=== PATIENT | male | born 1970 | race African-American/Black ===

== ENCOUNTER 2022-04-30 11:04 | Emergency (ER) | payer BC ==
[~2022-04-30] VITALS: Ht 193 cm; Wt 61.2 kg
--- NOTE | 2022-04-30 11:13 | NUR ---
PT VS: 110/76 HR 85 RR 14 O2 98%
--- NOTE | 2022-04-30 11:20 | NUR ---
PT [id number] C/O WEAKNESS AND DIZZINESS X3DAYS, WAS JUST DC FRI FROM HOSPITAL FOR NECK TUMOR REMOVAL, HX OF LIVER TRANSPLANT 2009. PT IS A/OX4, NO PAIN AT THIS TIME, RR 12 STABLE AT THIS TIME AND ON MONITOR.
--- NOTE | 2022-04-30 11:21 | NUR ---
DR. BAUGH AT BEDSIDE AT THIS TIME.
[2022-04-30] MEDS ORDERED: IV NS 0.9% 1,000 ML BAG IV ONE (11:30)
--- NOTE | 2022-04-30 11:43 | NUR ---
PT VS: 114/77 HR 82 RR 12 O2 99%
[2022-04-30] MEDS ORDERED: AZAT50TA18 PO (11:48)
[2022-04-30] MEDS ORDERED: CALC500T52 PO (11:48)
[2022-04-30] MEDS ORDERED: TACR0.5C4 PO (11:48)
[2022-04-30] MEDS ORDERED: FERR325T6 PO (11:48)
[2022-04-30] MEDS ORDERED: PRED5TAB PO (11:48)
--- NOTE | 2022-04-30 12:13 | NUR ---
PT VS: 122/77 HR 82 RR 12 O2 98%
[2022-04-30 12:32] LABS: BASOPHILS # (AUTO) 0.1 K/uL (0.0-0.2); BASOPHILS % (AUTO) 0.8 % (0.0-2.0); HEMATOCRIT 30 % (39-51); LYMPHOCYTES # (AUTO) 0.6 K/uL (0.8-4.8); LYMPHOCYTES % (AUTO) 8.2 % (20.0-44.0); MEAN CORPUSCULAR HGB CONC 34 g/dl (31.0-36.0); MEAN CORPUSCULAR VOLUME 93 fL (80-96); MONOCYTES # (AUTO) 0.7 K/uL (0.1-1.30); MONOCYTES % (AUTO) 10.4 % (2.0-12.0); NEUTROPHILS # (AUTO) 5.6 K/uL (1.8-8.9); NEUTROPHILS % (AUTO) 78.6 % (43.0-81.0); PLATELET COUNT (AUTO) 489 K/uL (150-450); WHITE BLOOD COUNT (AUTO) 7.1 K/uL (4.3-11.0)
[2022-04-30 12:37] LABS: CALCIUM, SERUM 7.6 mg/dL (8.5-10.1); CREATININE 0.9 mg/dL (0.6-1.3); POTASSIUM 3.6 mmol/L (3.5-5.1)
--- NOTE | 2022-04-30 12:43 | NUR ---
PT VS: 128/82 HR 85 RR 12 O2 98%
[2022-04-30 13:12] VITALS: BP 113/74
== END 2022-04-30 13:13 | disposition home or self-care (01) ==
LOC: ER 11:06
DX: R53.1 Weakness (principal); C43.4 Malignant melanoma of scalp and neck; Z94.4 Liver transplant status; Z79.899 Other long term (current) drug therapy
CPT/HCPCS: 36415; 80048; 82962; 85025; 93005; 96360; 99284; J7030